=== PATIENT | male | born 1980 | race Caucasian/White ===

== ENCOUNTER 2018-10-29 05:40 | Emergency (ER) | payer MEDICAID ==
[~2018-10-29] VITALS: Ht 175.3 cm; Wt 93.0 kg
[2018-10-29 05:48] VITALS: BP 141/75
--- NOTE | 2018-10-29 05:48 | NUR ---
TO BED # 4 AMBULATORY, REPORT GIVEN TO KELBY VALENZUELA
--- NOTE | 2018-10-29 05:48 | NUR ---
PT PRESENTS TO ED DIZZINESS, BLURRED VISION IN BILAT EYES, GENERALIZED BODY ACHES X2 DAYS. PT STATES LAST METH USE WAS X2 DAYS AGO AND FEELS LIKE HE IS WITHDRAWLING. VSS AT THIS TIME. A&OX4. ER MD AWARE. POSITIONED IN BED FOR COMFORT. ER MD AWARE. CONTINUE TO MONITOR.
--- NOTE | 2018-10-29 05:59 | NUR ---
Dr. Hernandez evaluating patient at bedside.
[2018-10-29] MEDS ORDERED: LORazepam 1 MG TAB PO ONE (06:05)
[2018-10-29 06:40] VITALS: BP 132/78
== END 2018-10-29 06:40 | disposition home or self-care (01) ==
LOC: MED 05:40
DX: H53.8 Other visual disturbances (principal); R06.02 Shortness of breath; F17.200 Nicotine dependence, unspecified, uncomplicated
CPT/HCPCS: 99283